=== PATIENT | male | born 2000 | race Two or more races ===

== ENCOUNTER 2024-12-12 22:12 | Inpatient (IN) | payer OTHER ==
[~2024-12-12] VITALS: Ht 165.1 cm; Wt 115.7 kg
[2024-12-12 22:19] VITALS: O2SAT 97
[2024-12-12] MEDS: SODIUM CHLORIDE 0.9% 1,000 ML IV ONE (23:00)
[2024-12-12] MEDS: SODIUM CHLORIDE 0.9% (SEPSIS BOLUS) IV ONE (23:36)
[2024-12-12] MEDS: CEFTRIAXONE 1GM/50ML 50 ML IV ONE (23:48)
[2024-12-13 00:01] LABS: BASOPHILS % 0.4 % (0.0-2.0); EOSINOPHILS % 1.3 % (0.0-5.0); HEMATOCRIT. 46.9 % (42.0-52.0); HEMOGLOBIN. 16.0 g/dL (14.0-18.0); LYMPHOCYTES % 17.4 % (20.0-50.0); MEAN PLATELET VOLUME 8.6 fl (7.4-10.4); MONOCYTES % 14.3 % (2.0-8.0); NEUTROPHILS % 66.6 % (40.0-76.0); PLATELET 202 x1000/uL (130-400); RED BLOOD CELL COUNT 5.44 mill/uL (4.7-6.1); RED CELL DISTRIBUTION WIDTH 13.3 % (11.6-14.6)
[2024-12-13 00:17] LABS: INR 1.0
[2024-12-13 00:30] LABS: CREATININE 0.9 mg/dL (0.6-1.3); UREA NITROGEN BLOOD 8 mg/dL (9-23)
[2024-12-13 00:32] LABS: ASPARTATE AMINOTRANSFERASE 35 IU/L (<34); BILIRUBIN DIRECT 0.2 mg/dL (<=3.0); BILIRUBIN TOTAL 0.7 mg/dL (0.1-1.0); PROTEIN TOTAL 7.6 g/dL (6.0-8.3); TROPONIN I HIGH SENSITIVITY < 4 ng/L (3.0-53)
[2024-12-13] MEDS: AZITHROMYCIN 500MG/250ML 250 ML IV ONE (00:52)
[2024-12-13 04:00] VITALS: BP 131/82; PULSE 124; RESP 17; TEMP 36.4; O2SAT 99
[2024-12-13 04:30] VITALS: BP 131/82; PULSE 124; PULSE 17; RESP 17; TEMP 36.418
[2024-12-13] MEDS ORDERED: IOHEXOL-350 100 ML BOTTLE ONE (06:40)
[2024-12-13 07:18] LABS: INFLUENZA TYPE A Presumptive Negative (Pres. Neg.)
[2024-12-13 08:00] VITALS: BP 138/84; PULSE 100; RESP 19; TEMP 37; O2SAT 96
[2024-12-13 08:00] LABS: INFLUENZA TYPE B Presumptive Negative (Pres. Neg.)
[2024-12-13 08:01] LABS: RESPIRATORY SYNCYTIAL VIRUS Not Detected (Not Detectd)
[2024-12-13] MEDS ORDERED: CEFTRIAXONE 1GM/50ML 50 ML IV SCH (09:00)
[2024-12-13] MEDS ORDERED: IPRATROPIUM/ALBUTEROL 0.5-3(2.5)MG/3ML NEB HHN PRN (09:00)
[2024-12-13] MEDS ORDERED: CLONIDINE 0.1MG TABLET PO PRN (09:00)
[2024-12-13] MEDS ORDERED: AZITHROMYCIN 500 MG in DEXT 5% WATER 250 ML IV SCH (09:00)
[2024-12-13] MEDS ORDERED: ONDANSETRON HCL 4MG/2ML INJ IV PRN (09:00)
[2024-12-13] MEDS ORDERED: DIPHENHYDRAMINE 50MG/ML VIAL IV PRN (09:00)
[2024-12-13] MEDS: ENOXAPARIN 120MG/0.8ML SYR SUBCUT SCH (10:10)
[2024-12-13 12:00] VITALS: BP 127/70; PULSE 100; RESP 19; TEMP 36.9; O2SAT 97
[2024-12-13] MEDS: SODIUM CHLORIDE 0.9% 1,000 ML IV SCH (15:13)
[2024-12-13 16:00] VITALS: BP 132/68; PULSE 100; RESP 19; TEMP 36.8; O2SAT 100
[2024-12-13 20:00] VITALS: BP_SYST 109; BP_SYST 136; BP_DIAS 63; BP_DIAS 75; PULSE 102; PULSE 96; RESP 19; RESP 20; TEMP 36.2; TEMP 40; O2SAT 97
[2024-12-13] MEDS: ACETAMINOPHEN 325MG TABLET PO PRN (20:25)
[2024-12-13] MEDS: CEFTRIAXONE 1GM/50ML 50ML IV SCH (22:11)
[2024-12-13] MEDS: AZITHROMYCIN 500MG in D5W 250ML IV SCH (23:13)
[2024-12-14] VITALS: BP 115/64; PULSE 95; RESP 20; TEMP 36.7; O2SAT 99
[2024-12-14 04:00] VITALS: BP_SYST 116; BP_SYST 119; BP_DIAS 63; BP_DIAS 70; PULSE 89; PULSE 97; RESP 19; TEMP 36.6; TEMP 40.4; O2SAT 98
[2024-12-14 08:00] VITALS: BP 127/66; PULSE 100; RESP 18; TEMP 35.9; O2SAT 98
[2024-12-14 12:00] VITALS: BP 126/68; PULSE 97; RESP 18; TEMP 36.6; O2SAT 97
[2024-12-14 12:04] LABS: BASOPHILS % 0.4 % (0.0-2.0); EOSINOPHILS % 4.2 % (0.0-5.0); HEMATOCRIT. 43.7 % (42.0-52.0); HEMOGLOBIN. 14.9 g/dL (14.0-18.0); LYMPHOCYTES % 21.9 % (20.0-50.0); MEAN PLATELET VOLUME 8.6 fl (7.4-10.4); MONOCYTES % 12.4 % (2.0-8.0); NEUTROPHILS % 61.1 % (40.0-76.0); PLATELET 186 x1000/uL (130-400); RED BLOOD CELL COUNT 5.07 mill/uL (4.7-6.1); RED CELL DISTRIBUTION WIDTH 13.2 % (11.6-14.6)
[2024-12-14 12:26] LABS: CREATININE 0.7 mg/dL (0.6-1.3); TROPONIN I HIGH SENSITIVITY 46 ng/L (3.0-53); UREA NITROGEN BLOOD 8 mg/dL (9-23)
[2024-12-14 16:00] VITALS: BP 122/60; PULSE 104; RESP 18; TEMP 36.9; O2SAT 97
[2024-12-14] MEDS ORDERED: AZIT500T8 MT (16:07)
[2024-12-14 20:00] VITALS: BP 129/73; PULSE 104; RESP 17; TEMP 36.6; O2SAT 98
[2024-12-14 23:25] LABS: TROPONIN I HIGH SENSITIVITY 16 ng/L (3.0-53)
[2024-12-15 00:04] VITALS: BP 127/72; PULSE 108; RESP 16; TEMP 97.9
== END 2024-12-15 00:10 | disposition home or self-care (01) | DRG 720 ==
LOC: ER 22:12 → 8WST 12-13 00:56 → EDBEDREQDT 12-13 01:06 → EDBEDREQTM 12-13 01:06 → EDBEDREQ 12-13 01:06 → ENRESERV 12-13 02:40
PROVIDERS: ADMIT Internal Medicine; ATTEND Internal Medicine
DX: A41.9 Sepsis, unspecified organism (principal); J18.9 Pneumonia, unspecified organism; Z20.822 Contact with and (suspected) exposure to COVID-19; R20.0 Anesthesia of skin; Y90.0 Blood alcohol level of less than 20 mg/100 ml; F10.929 Alcohol use, unspecified with intoxication, unspecified; Z79.899 Other long term (current) drug therapy
CPT/HCPCS: 36415; 71045; 71275; 80048; 80076; 80320; 83605; 84145; 84443; 84484; 85025; 85379; 87420; 87426; 87804; 93005; 94640; 96365; 96367; 99285; A4606; J0456; J0696; J1650; J7030; Q9967; G0480